=== PATIENT | male | born 1950 | race Caucasian/White ===

== ENCOUNTER 2020-01-28 06:55 | Day surgery (SDC) | payer MEDICARE, BC ==
[~2020-01-28] VITALS: Ht 175.3 cm; Wt 110.0 kg
[~2020-01-28 06:55] MED LIST: AMLO5 PO; ASPI81CH; ATOR20 PO; Bisoprolol Fumar5 MG PO; ERYT.5TO OS; ESOM20 PO; FERSU300 PO; FLUSAL2505; FOLI400 PO; HYDCHL25 PO; LEVSOD50; LISI5; METTREX2.5; MULVITMIND; OLOP.1OPSO OS; OXYACE5T PO; PROAIR DIGIHAL90 MCG IH; VYTORIN; [UNRECOGNIZED DRUG - OTHER]
[2020-01-28] MEDS ORDERED: ASPIR 8181 M1 PO (08:49)
--- NOTE | 2020-01-28 10:53 | NUR ---
PT TR BAND REMOVED FROM RIGHT WRIST, RED CLOTH DOT DRESSING APPLIED. ARM BOARD PLACED ON RIGHT HAND FOR SUPPORT. PT VERBALIZED UNDERSTANDING OF D/C INSTRUCTIONS. PAPERWORK PROVIDED IN FOLDER TO TAKE HOME. ENCOURAGED TO FOLLOW UP SCHEDULED. PT GETS DRESSED WITH LIMITED ASSISTANCE FROM HIS . SHE IS TO DRIVE THEM HOME. VSS. IV REMOVED FROM LAC WITH CATH INTACT, PRESSURE DRESSING APPLIED. NADN AT TIME OF DISCHARGE. PT DENIES NEED FOR W/C. AMBULATES WITH STEADY GAIT OUT TO PRIVATE VEHICLE.
== END 2020-01-28 11:00 | disposition home or self-care (01) ==
LOC: MHTC 06:55
PROC: B2111ZZ Fluoroscopy of Multiple Coronary Arteries using Low Osmolar Contrast (ICD-10-PCS; principal; 2020-01-28)
PROC: 4A023N7 Measurement of Cardiac Sampling and Pressure, Left Heart, Percutaneous Approach (ICD-10-PCS; principal; 2020-01-28)
DX: I35.0 Nonrheumatic aortic (valve) stenosis (principal); I25.10 Atherosclerotic heart disease of native coronary artery without angina pectoris; I10 Essential (primary) hypertension; J45.909 Unspecified asthma, uncomplicated; Z87.891 Personal history of nicotine dependence; Z79.899 Other long term (current) drug therapy; E78.5 Hyperlipidemia, unspecified; Z90.3 Acquired absence of stomach [part of]
CPT/HCPCS: 93005; 93010; 93454; 99152; C1769; C1894; J1644; J2250; J3010; J7030; Q9967

== ENCOUNTER 2021-07-25 14:55 | Emergency (ER) | payer MEDICARE, BC ==
[~2021-07-25] VITALS: Ht 175.3 cm; Wt 108.9 kg
[~2021-07-25 14:55] MED LIST changes: +ASPIR 8181 M1 PO; +Almacone Liqui355 ML PO
[2021-07-25 15:43] LABS: BASOPHILS ABSOLUTE AUTO 0.02 K/mm3 (0.00-0.23); BASOPHILS PERCENT AUTO 0 % (0-2); EOSINOPHILS ABSOLUTE AUTO 0.01 K/mm3 (0.00-0.68); EOSINOPHILS PERCENT AUTO 0 % (0-6); Hematocrit 46.2 % (37.0-53.0); Hemoglobin 15.2 g/dL (13.5-17.5); IMMATURE GRAN ABSOLUTE AUTO 0.01 K/mm3 (0.00-0.10); IMMATURE GRAN PERCENT AUTO 0 % (0-1); LYMPHOCYTES ABSOLUTE AUTO 0.27 K/mm3 (0.84-5.20); LYMPHOCYTES PERCENT AUTO 5 % (21-46); MONOCYTES ABSOLUTE AUTO 0.05 K/mm3 (0.16-1.47); MONOCYTES PERCENT AUTO 1 % (4-13); Mean Corpuscular HGB 31.6 pg (26.0-34.0); Mean Corpuscular HGB Conc 32.9 g/dL (31.5-36.5); Mean Corpuscular Volume 96 fL (80-100); Mean Platelet Volume 9.6 fL (9.1-12.4); NEUTROPHILS ABSOLUTE AUTO 5.69 K/mm3 (1.96-9.15); NEUTROPHILS PERCENT AUTO 94 % (41-73); Platelet Count 224 K/mm3 (150-400); RDW Coefficient Variation 13.9 % (11.7-14.2); RDW Standard Deviation 49.4 fL (35.1-46.3); Red Blood Cell Count 4.81 M/mm3 (4.30-5.90); White Blood Cell Count 6.05 K/mm3 (4.00-11.30)
[2021-07-25 16:17] LABS: Alanine Aminotransfer (ALT/SGP 282 U/L (12-78); Albumin, Blood 3.7 g/dL (3.4-5.0); Albumin/Globulin Ratio 1.1 (0.8-1.8); Alk Phos 74 U/L (50-136); Anion Gap 5 mmol/L (6-16); Aspartate Aminotrans (AST/SGOT 529 U/L (12-37); Bilirubin, Total 2.6 mg/dL (0.1-1.0); Blood Urea Nitrogen 18 mg/dL (8-24); Bun/Creatinine Ratio 18.7 (12.0-20.0); CO2, Blood 26 mmol/L (21-32); Calcium, Blood 8.7 mg/dL (8.5-10.1); Chloride, Blood 109 mmol/L (98-108); Creatinine, Blood 0.97 mg/dL (0.60-1.20); Globulin, Blood 3.4 g/dL (2.2-4.0); Glomerular Filtration Rate >60 (60-); Glucose, Blood 113 mg/dL (70-99); Potassium, Blood 4.6 mmol/L (3.5-5.5); Sodium, Blood 140 mmol/L (136-145); Total Protein, Blood 7.1 g/dL (6.4-8.2); Troponin I <0.015 ng/mL (0.000-0.040)
== END 2021-07-25 21:30 | disposition home or self-care (01) ==
LOC: ER 14:55
PROVIDERS: Physician Assistant
DX: K85.90 Acute pancreatitis without necrosis or infection, unspecified (principal); J44.9 Chronic obstructive pulmonary disease, unspecified; E03.9 Hypothyroidism, unspecified; I10 Essential (primary) hypertension; Z87.891 Personal history of nicotine dependence; Z79.899 Other long term (current) drug therapy; Z79.82 Long term (current) use of aspirin; Z79.890 Hormone replacement therapy; Z95.4 Presence of other heart-valve replacement; Z98.84 Bariatric surgery status
CPT/HCPCS: 36415; 71046; 74177; 76705; 80053; 83690; 84484; 85025; 93005; 93010; 99285-25; Q9967

== ENCOUNTER → 2021-09-26 | Outpatient (CLI) | payer MEDICARE, BC | LOC: LAB SHORT 11:27 → LAB 11:27 | DX: D48.5 Neoplasm of uncertain behavior of skin (principal) | CPT/HCPCS: 88305 ==

== ENCOUNTER → 2022-01-01 | Outpatient (CLI) | payer MEDICARE, BC | END | disposition home or self-care (01) | LOC: LAB SHORT 11:07 | DX: L57.0 Actinic keratosis (principal) | CPT/HCPCS: 88305 ==

== ENCOUNTER → 2023-07-22 | Outpatient (CLI) | payer MEDICARE, BC | LOC: LAB 14:00 → LAB SHORT 14:00 | DX: R30.0 Dysuria (principal) | CPT/HCPCS: 87086 ==

== ENCOUNTER → 2023-09-25 | Outpatient (CLI) | payer MEDICARE, BC | END | disposition home or self-care (01) | LOC: LAB SHORT 11:51 → LAB 11:51 | DX: D48.5 Neoplasm of uncertain behavior of skin (principal) | CPT/HCPCS: 88305 ==

== ENCOUNTER → 2024-04-08 | Outpatient (CLI) | payer OTHER ==
[~2024-04-08] MED LIST changes: +ASPI81CH PO; +CALTRATE 600 P1 EACH PO; +CLOP75 PO; +GINKGO60 MG PO; +HYALURONIC ACID60 MG PO; +Lopressor 25 mg25 MG PO; +MECL25 PO; +PLAVIX75 MG PO; +SILD50TA PO; +TAMS.4ER PO
[2024-04-08 15:32] LABS: Ketones, Urine Neg (Neg)
== END | disposition home or self-care (01) ==
LOC: LAB 14:05 → LAB SHORT 14:05
PROVIDERS: Family Medicine
DX: R35.89 Other polyuria (principal)
CPT/HCPCS: 81003; 84300